=== PATIENT | female | born 1970 | race Caucasian/White ===

== ENCOUNTER 2016-10-26 19:36 | Emergency (ER) | payer MEDICARE ==
[2016-10-26] MEDS ORDERED: SODIUM CHLORIDE 0.9% 1000ML 750 ML IVS ONE (20:23)
[2016-10-26] MEDS ORDERED: methylPREDNISolone SODIUM SUC 1,000 MG in SODIUM CHLORIDE 0.9% 250ML 250 ML IVPB ONE (21:14)
[2016-10-26] MEDS ORDERED: methylPREDNISolone SODIUM SUC 125 MG/2 ML VIAL ONE ×2 (21:50→21:54)
[2016-10-26] MEDS ORDERED: SODIUM CHLORIDE 0.9% 250ML 250 ML ONE (21:57)
[2016-10-26] MEDS ORDERED: HYDROcodone 10MG/APAP 325MG 1 EA TAB PO ONE (22:15)
--- NOTE | 2016-10-26 22:25 | ED.PDOC ---
History of Present Illness - General Chief Complaint: Headache Stated Complaint: Headache x 5 days Time Seen by Provider: 10/26/16 19:38 Source: patient Exam Limitations: no limitations - History of Present Illness Initial Comments: the patient is a 45-year-old fe male presenting to the emergency room secondary to what she feels is a multiple sclerosis flare. The patient has had multiple sclerosis for 12 years and has approximately 6 small flares per year. Symptoms range from a tingling in her scalp and hands, to vision changes and weakness of her right lower extremity. She is presenting with 5 days of tingling in her scalp and hands with an associated headache. No other new symptoms. No fevers. No sore throat or runny nose. No trauma. No syncope or near syncope. No weakness and no vision changes. She reports that with these flares, she normally receives 1-2 Solu-Medrol infusions in order to correct them. She does take daily medications for her multiple sclerosis. Timing/Duration: 1 week Severity: mild Improving Factors: nothing Worsening Factors: nothing Associated Symptoms: headaches, malaise Allergies/Adverse Reactions: Allergies Chlorhexidine [From Hibiclens] Allergy (Verified 10/06/13 13:30) Aspirin Adverse Reaction (Verified 10/26/16 19:56) GI Upset Ibuprofen Adverse Reaction (Verified 10/26/16 19:56) Adverse Reaction Home Medications: Ambulatory Orders Gabapentin [Neurontin] 800 mg PO TID 10/04/13 Citalopram Hydrobromide 40 mg PO 10/26/16 Hydrocodone/Ibuprofen 7.5-200 mg 1 unit PO PRN 10/26/16 LORazepam [Ativan] 1 mg PO BID PRN 10/26/16 Review of Systems - Review of Systems Constitutional: States: malaise EENTM: States: no symptoms reported Respiratory: States: no symptoms reported Cardiology: States: no symptoms reported Gastrointestinal/Abdominal: States: no symptoms reported Genitourinary: States: no symptoms reported Musculoskeletal: States: no symptoms reported Skin: States: no symptoms reported Neurological: States: see HPI Endocrine: States: no symptoms reported All other Systems: No Change from Baseline Past Medical History (General) - Patient Medical History Hx Stroke: No Hx Cardiac Disorders: No Hx Congestive Heart Failure: No Hx Hypertension: No Hx Diabetes: No Hx Cancer: No Hx Hepatitis C: No Surgical History: Hysterectomy - Vaccination History Hx Tetanus, Diphtheria Vaccination: Yes Hx Influenza Vaccination: No - Triggers her MS Hx Pneumococcal Vaccination: No - Triggers her MS - Social History Hx Tobacco Use: No Hx Chewing Tobacco Use: No Hx Alcohol Use: No Hx Substance Use: No Hx Substance Use Treatment: No Hx Depression: No Feels Threatened In Home Enviroment: No Feels Threatened In a Relationship: No Hx Physical Abuse: No Hx Emotional Abuse: No Hx Suspected Abuse: No - Female History Patient is a Female of Child Bearing Age (10 -59 yrs old): No Patient : No Family Medical History - Family History Grandparents Family History: Unknown Physical Exam - Physical Exam General Appearance: Alert, Comfortable, No apparent distress Eye Exam: bilateral normal Ears, Nose, Throat: hearing grossly normal, normal ENT inspection, normal pharynx Neck: non-tender, full range of motion, supple, normal inspection Respiratory: chest non-tender, lungs clear, normal breath sounds, no respiratory distress, no accessory muscle use Cardiovascular/Chest: normal peripheral pulses, regular rate, rhythm, no edema Peripheral Pulses: radial,right: 2+, radial,left: 2+, dorsalis pedis,right: 2+, dorsalis pedis,left: 2+ Gastrointestinal/Abdominal: non tender, soft Rectal Exam: deferred Back Exam: normal inspection, no CVA tenderness, no vertebral tenderness Extremity: normal range of motion, non-tender, normal inspection, no pedal edema , normal capillary refill 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 laboratory work is reassuring. The patient has received a small IV fluid bolus. she has received 1 g of methylprednisolone succinate via her port. If the patient is significantly improved tomorrow, then she can contact her neurologist the next day to see if he wants her to have the second Solu-Medrol dose. If she is not improving, then she needs to return tomorrow for the second dose. ER warnings were given. - Results/Orders Results/Orders: Vital Signs - 24 hr 10/26/16 19:56 Temperature 98.3 F Pulse Rate [L 62 Arm] Respiratory 20 Rate Blood Pressure 143/78 [L Arm] O2 Sat by Pulse 93 L Oximetry Laboratory Tests 10/26/16 10/26/16 20:38 20:38 WBC 5.2 RBC 4.64 Hgb 14.4 Hct 42.0 MCV 90.4 MCH 31.0 MCHC 34.3 RDW 12.4 Plt Count 188 MPV 8.9 Absolute Neuts (auto) 2.20 Absolute Lymphs (auto) 2.40 Absolute Monos (auto) 0.50 Absolute Eos (auto) 0.00 Absolute Basos (auto) 0.00 Neutrophils % 42.6 Lymphocytes % 46.9 Monocytes % 9.5 H Eosinophils % 0.6 L Basophils % 0.4 Sodium 137 Potassium 4.1 Chloride 102 Carbon Dioxide 29 Anion Gap 10.1 L BUN 15 Creatinine 0.63 BUN/Creatinine Ratio 23.8 H Random Glucose 100 Serum Osmolality 274.7 L Calcium 9.2 Magnesium 2.0 Total Bilirubin 0.2 AST 30 ALT 22 Alkaline Phosphatase 104 Serum Total Protein 8.8 H Albumin 4.4 Globulin 4.4 H Albumin/Globulin Ratio 1.0 L Departure - Departure Clinical Impression: Multiple sclerosis exacerbation Disposition: Discharge to Home or Self Care Condition: Fair Departure Forms: ED Discharge - Pt. Copy, Patient Portal Self Enrollment Instructions: Multiple Sclerosis (Alternative Therapy), Multiple Sclerosis -- Adult Diet: regular diet Activity: increase activity as tolerated Referrals: Sher Bradley III, MD [Primary Care Provider] - 1-2 Weeks Home Medications: Ambulatory Orders Gabapentin [Neurontin] 800 mg PO TID 10/04/13 Citalopram Hydrobromide 40 mg PO 10/26/16 Hydrocodone/Ibuprofen 7.5-200 mg 1 unit PO PRN 10/26/16 LORazepam [Ativan] 1 mg PO BID PRN 10/26/16 Additional Instructions: the patient is a 45-year-old female presenting with symptoms consistent with her multiple sclerosis flares in an earlier stage. laboratory work is reassuring. The patient has received a small IV fluid bolus. she has received 1 g of methylprednisolone succinate via her port. If the patient is significantly improved tomorrow, then she can contact her neurologist the next day to see if he wants her to have the second Solu-Medrol dose. If she is not improving, then she needs to return tomorrow for the second dose. ER warnings were given.
[2016-10-26 23:21] VITALS: TEMP 99.5; O2SAT 100
[2016-10-26] MEDS ORDERED: HEPARIN SODIUM 100 U/ML 5 ML SYG IV ONE (23:59)
[2016-10-27 00:21] VITALS: BP 101/73
== END 2016-10-27 00:21 | disposition home or self-care (01) ==
LOC: ER 19:36
DX: G35 Multiple sclerosis (principal); Z88.6 Allergy status to analgesic agent; Z88.8 Allergy status to other drugs, medicaments and biological substances
CPT/HCPCS: 36415; 80053; 81001; 83735; 85025; 87086; J1642; J2930; J7030; J7050

== ENCOUNTER 2017-01-18 16:25 | Emergency (ER) | payer MEDICARE ==
[2017-01-18] MEDS ORDERED: ONDANSETRON INJ 4 MG/2 ML VIAL IV ONE (16:54)
[2017-01-18] MEDS ORDERED: SODIUM CHLORIDE 0.9% 1000ML 1,000 ML IVS ONE (16:54)
--- NOTE | 2017-01-18 16:58 | ED.PDOC ---
History of Present Illness - General Chief Complaint: GI Problem Stated Complaint: Nausea and vomiting Time Seen by Provider: 01/18/17 16:53 Source: patient Exam Limitations: no limitations - History of Present Illness Initial Comments: Patient presents with N/V since 18:00 last night. She says it is almost continuous. She had about a two hour "break" from it but then it started again. No abdominal pain. No diarrhea. Last meal was lunchtime yesterday. Last bowel movement was yesterday. Patient has MS and was treated two days ago with IV IgG. She has never had N/V after previous treatments. S/P appendectomy, cholecystectomy, and hysteretomy. Vomitus started out as mucous with some blood streaks but now is green. No coffee ground emesis. Patient uses alcohol socially. No similarly sick contacts. No other complaints. Timing/Duration: 24 hours Severity: moderate Improving Factors: nothing Worsening Factors: nothing Associated Symptoms: denies symptoms Allergies/Adverse Reactions: Allergies Chlorhexidine [From Hibiclens] Allergy (Verified 01/18/17 16:56) Aspirin Adverse Reaction (Verified 01/18/17 16:56) GI Upset Ibuprofen Adverse Reaction (Verified 01/18/17 16:56) Adverse Reaction Home Medications: Ambulatory Orders Gabapentin [Neurontin] 800 mg PO TID 10/04/13 Citalopram Hydrobromide 40 each PO DAILY 10/26/16 LORazepam [Ativan] 1 mg PO TID PRN 10/26/16 Estrogens, Conjugated [Premarin] 1.25 mg PO DAILY 01/18/17 HYDROcodone/IBUPROFEN 7.5/200 [Vicoprofen] 1 tab PO TID PRN 01/18/17 Interferon Beta-1A [Rebif] 44 mcg SC MOWEFR 01/18/17 Review of Systems - Review of Systems Constitutional: States: no symptoms reported EENTM: States: no symptoms reported Respiratory: States: no symptoms reported Cardiology: States: no symptoms reported Gastrointestinal/Abdominal: States: see HPI Genitourinary: States: no symptoms reported Musculoskeletal: States: no symptoms reported Skin: States: no symptoms reported Neurological: States: no symptoms reported, emotional problems Hematologic/Lymphatic: States: no symptoms reported Past Medical History (General) - Patient Medical History Hx Stroke: No Hx Cardiac Disorders: No Hx Congestive Heart Failure: No Hx Hypertension: No Hx Diabetes: No Hx Cancer: No Hx Hepatitis C: No - Vaccination History Hx Tetanus, Diphtheria Vaccination: Yes Hx Influenza Vaccination: No - Triggers her MS Hx Pneumococcal Vaccination: No - Triggers her MS - Social History Hx Tobacco Use: No Hx Chewing Tobacco Use: No Hx Alcohol Use: No Hx Substance Use: No Hx Substance Use Treatment: No Hx Depression: No Hx Physical Abuse: No Hx Emotional Abuse: No Hx Suspected Abuse: No - Female History Patient : No Family Medical History - Family History Grandparents Family History: Unknown Physical Exam - Physical Exam General Appearance: Alert Ears, Nose, Throat: normal ENT inspection Neck: non-tender, full range of motion, supple Respiratory: lungs clear Cardiovascular/Chest: normal peripheral pulses, regular rate, rhythm Gastrointestinal/Abdominal: normal bowel sounds, non tender, soft Back Exam: no CVA tenderness Progress - Progress Progress: 01/18/17 18:55 wbc wnl. Patient's nausea resolved with zofran 4 mg IV x one and one liter NS bolus. Patient did not vomit in the E.D. The risks and benefits of a CT scan were discussed with the patient and it was mutually decided not to perform one. Laboratory Tests 01/18/17 01/18/17 01/18/17 17:32 17:32 17:32 WBC 4.4 L RBC 4.57 Hgb 14.5 Hct 41.5 MCV 90.7 MCH 31.7 H MCHC 34.9 RDW 12.1 Plt Count 230 MPV 9.0 Absolute Neuts (auto) 2.40 Absolute Lymphs (auto) 1.50 Absolute Monos (auto) 0.40 Absolute Eos (auto) 0.00 Absolute Basos (auto) 0.00 Neutrophils % 55.6 Lymphocytes % 33.8 Monocytes % 10.1 H Eosinophils % 0.2 L Basophils % 0.3 Sodium 136 Potassium 3.8 Chloride 102 Carbon Dioxide 22 Anion Gap 15.8 BUN 12 Creatinine 0.49 L BUN/Creatinine Ratio 24.5 H Random Glucose 100 Serum Osmolality 271.8 L Calcium 9.2 Total Bilirubin 0.8 AST 30 ALT 21 Alkaline Phosphatase 100 Serum Total Protein 9.9 H Albumin 4.0 Globulin 5.9 H Albumin/Globulin Ratio 0.7 L Lipase 27 Departure - Departure Clinical Impression: Vomiting Disposition: Discharge to Home or Self Care Condition: Good Diet: other - Start with clear fluids for 24 hours then advance to a soft, bland diet. After that, advance your diet as tolerated. Take medication as directed. Activity: increase activity as tolerated Referrals: Sher Bradley III, MD [Primary Care Provider] - 1-2 Weeks Home Medications: Ambulatory Orders Gabapentin [Neurontin] 800 mg PO TID 10/04/13 Citalopram Hydrobromide 40 each PO DAILY 10/26/16 LORazepam [Ativan] 1 mg PO TID PRN 10/26/16 Estrogens, Conjugated [Premarin] 1.25 mg PO DAILY 01/18/17 HYDROcodone/IBUPROFEN 7.5/200 [Vicoprofen] 1 tab PO TID PRN 01/18/17 Interferon Beta-1A [Rebif] 44 mcg SC MOWEFR 01/18/17
[2017-01-18 16:59] VITALS: TEMP 98.6
[2017-01-18] MEDS ORDERED: ONDANSETRON ODT (ER DISP) 8 MG TAB PO ONE (18:58)
[2017-01-18] MEDS ORDERED: HEPARIN SODIUM 100 U/ML 5 ML SYG IV ONE (19:00)
[2017-01-18 19:13] VITALS: BP 138/92; O2SAT 98
== END 2017-01-18 19:14 | disposition home or self-care (01) ==
LOC: ER 16:25
DX: R11.2 Nausea with vomiting, unspecified (principal); G35 Multiple sclerosis; Z88.6 Allergy status to analgesic agent; Z88.8 Allergy status to other drugs, medicaments and biological substances
CPT/HCPCS: 36415; 80053; 83690; 85025; J1642; J2405; J7030

== ENCOUNTER → 2017-04-08 | Outpatient (CLI) | payer MEDICARE | END | disposition home or self-care (01) | LOC: LAB.O 09:06 | PROVIDERS: ATTEND Obstetrics & Gynecology | DX: Z00.00 Encounter for general adult medical examination without abnormal findings (principal); G35 Multiple sclerosis; N95.1 Menopausal and female climacteric states; E04.2 Nontoxic multinodular goiter; F41.9 Anxiety disorder, unspecified ==

== ENCOUNTER 2017-10-25 16:36 | Emergency (ER) | payer MEDICARE, MEDICAID ==
[2017-10-25] MEDS ORDERED: SODIUM CHLORIDE 0.9% 1000ML 1,000 ML IVS ONE (17:09)
[2017-10-25] MEDS ORDERED: TAMSULOSIN 0.4 MG CAP PO ONE (17:09)
[2017-10-25] MEDS ORDERED: MEPERIDINE HCL 50 MG/ML VIAL IV ONE (17:10)
[2017-10-25] MEDS ORDERED: ONDANSETRON ODT 8 MG TAB SL ONE (17:10)
--- NOTE | 2017-10-25 17:13 | ED.PDOC ---
History of Present Illness - General Chief Complaint: Back Pain or Injury Time Seen by Provider: 10/25/17 17:08 Source: patient Exam Limitations: no limitations - History of Present Illness Initial Comments: patient comes in today with 3 day history of right sided back pain that radiates to the right flank and lower abdomen. Patient has been unable to urinate well over the past couple of days with pain but no burning and no fever but some chills. Patient states she's had no injury or trauma she's had no change in activity. Patient states that today for most the morning she was unable to pass urine until directly coming to the emergency room. She feels like maybe she has a kidney stone but she has never had one before. She does have problems with her urination because of her MS. After her treatment which the last one was 2 weeks ago she normally has problems with urinary incontinence. She's never had these problems though. Patient has MS and is undergoing treatment. She has no other medical problems and is otherwise healthy. Allergies/Adverse Reactions: Allergies Chlorhexidine [From Hibiclens] Allergy (Verified 01/18/17 16:56) Aspirin Adverse Reaction (Verified 01/18/17 16:56) GI Upset Ibuprofen Adverse Reaction (Verified 01/18/17 16:56) Adverse Reaction Home Medications: Ambulatory Orders Gabapentin [Neurontin] 800 mg PO TID 10/04/13 Citalopram Hydrobromide 40 each PO DAILY 10/26/16 LORazepam [Ativan] 1 mg PO TID PRN 10/26/16 Estrogens, Conjugated [Premarin] 1.25 mg PO DAILY 01/18/17 HYDROcodone/IBUPROFEN 7.5/200 [Vicoprofen] 1 tab PO TID PRN 01/18/17 Interferon Beta-1A [Rebif] 44 mcg SC MOWEFR 01/18/17 Review of Systems - Review of Systems Constitutional: States: chills. Denies: diaphoresis, fever EENTM: States: no symptoms reported Respiratory: States: no symptoms reported Cardiology: States: no symptoms reported Gastrointestinal/Abdominal: States: abdominal pain, nausea, vomiting. Denies: constipation, diarrhea Genitourinary: States: see HPI, pain. Denies: hematuria Musculoskeletal: States: back pain Skin: States: no symptoms reported Neurological: States: see HPI Past Medical History (General) - Patient Medical History Hx Stroke: No Hx Cardiac Disorders: No Hx Congestive Heart Failure: No Hx Hypertension: No Hx Diabetes: No Hx Cancer: No Hx Hepatitis C: No Hx Other - free text: Multiple Sclerosis - Vaccination History Hx Tetanus, Diphtheria Vaccination: Yes Hx Influenza Vaccination: No - Triggers her MS Hx Pneumococcal Vaccination: No - Triggers her MS - Social History Hx Tobacco Use: No Hx Chewing Tobacco Use: No Hx Alcohol Use: No Hx Substance Use: No Hx Substance Use Treatment: No Hx Depression: No Hx Physical Abuse: No Hx Emotional Abuse: No Hx Suspected Abuse: No - Female History Patient : No Family Medical History - Family History Grandparents Family History: Unknown Living Status: Physical Exam - Physical Exam General Appearance: Obvious distress Eye Exam: bilateral normal Ears, Nose, Throat: hearing grossly normal, normal ENT inspection, normal pharynx Neck: non-tender, full range of motion, supple, normal inspection Respiratory: chest non-tender, lungs clear, normal breath sounds, no respiratory distress Cardiovascular/Chest: normal peripheral pulses, regular rate, rhythm, no edema, no gallop, no JVD, no murmur Peripheral Pulses: radial,right: 2+, radial,left: 2+ Gastrointestinal/Abdominal: normal bowel sounds, soft - TTP to RLQ and R flank with no distention, rebound, or guarding Back Exam: CVA tenderness (R), other - no bruising no gross deformity Progress - Progress Progress: 10/25/17 20:20 10/25/17 17:09 IV Care:Saline Lock per Protoc QSHIFT Laboratory Results WBC 6.2 K/mm3 (4.8-10.8) 10/25/17 17:38 RBC 4.32 M/mm3 (4.20-5.40) 10/25/17 17:38 Hgb 13.5 gm/dL (12.0-16.0) 10/25/17 17:38 Hct 38.9 % (36.0-47.0) 10/25/17 17:38 MCV 90.1 fl (81.0-99.0) 10/25/17 17:38 MCH 31.2 pg (27.0-31.0) H 10/25/17 17:38 MCHC 34.6 g/dL (33.0-37.0) 10/25/17 17:38 RDW 12.3 % (11.5-14.5) 10/25/17 17:38 Plt Count 218 K/mm3 (130-400) 10/25/17 17:38 MPV 9.4 fl (7.40-10.4) 10/25/17 17:38 Absolute Neuts (auto) 3.20 K/uL (1.8-6.8) 10/25/17 17:38 Absolute Lymphs (auto) 2.40 K/uL (1.0-3.4) 10/25/17 17:38 Absolute Monos (auto) 0.50 K/uL (0.2-0.8) 10/25/17 17:38 Absolute Eos (auto) 0.00 K/uL (0.0-0.4) 10/25/17 17:38 Absolute Basos (auto) 0.00 K/uL (0.0-0.1) 10/25/17 17:38 Neutrophils % 51.6 % (42.0-78.0) 10/25/17 17:38 Lymphocytes % 39.4 % (20.0-50.0) 10/25/17 17:38 Monocytes % 8.0 % (2.0-9.0) 10/25/17 17:38 Eosinophils % 0.6 % (1.0-5.0) L 10/25/17 17:38 Basophils % 0.4 % (0.0-2.0) 10/25/17 17:38 Sodium 135 mmol/L (135-145) 10/25/17 17:38 Potassium 3.6 mmol/L (3.6-5.0) 10/25/17 17:38 Chloride 103 mmol/L (101-111) 10/25/17 17:38 Carbon Dioxide 25 mmol/L (21-31) 10/25/17 17:38 Anion Gap 10.6 (12-18) L 10/25/17 17:38 BUN 9 mg/dL (7-18) 10/25/17 17:38 Creatinine 0.62 mg/dL (0.6-1.3) 10/25/17 17:38 BUN/Creatinine Ratio 14.5 (10-20) 10/25/17 17:38 Random Glucose 90 mg/dL (70-105) 10/25/17 17:38 Serum Osmolality 268.3 mOsm/L (275-295) L 10/25/17 17:38 Calcium 8.8 mg/dL (8.4-10.2) 10/25/17 17:38 Total Bilirubin 0.3 mg/dL (0.2-1.0) 10/25/17 17:38 AST 25 IU/L (10-42) 10/25/17 17:38 ALT 18 IU/L (10-60) 10/25/17 17:38 Alkaline Phosphatase 125 IU/L (42-121) H 10/25/17 17:38 Serum Total Protein 8.4 gm/dL (6.4-8.2) H 10/25/17 17:38 Albumin 3.7 g/dl (3.2-5.5) 10/25/17 17:38 Globulin 4.7 gm/dL (2.3-3.5) H 10/25/17 17:38 Albumin/Globulin Ratio 0.8 (1.1-1.9) L 10/25/17 17:38 Urine Color Yellow (Yellow) 10/25/17 17:07 Urine Appearance Clear (Clear) 10/25/17 17:07 Urine pH 7.0 (4.5-7.8) 10/25/17 17:07 Ur Specific [place] 1.010 (1.005-1.030) 10/25/17 17:07 Urine Protein Negative mg/dL 10/25/17 17:07 Urine Glucose (UA) Negative mg/dL (Negative) 10/25/17 17:07 Urine Ketones Negative mg/dL (NEGATIVE) 10/25/17 17:07 Urine Blood Trace-lysed (Negative) H 10/25/17 17:07 Urine Nitrite Negative 10/25/17 17:07 Urine Bilirubin Negative (NEGATIVE) 10/25/17 17:07 Urine Urobilinogen 0.2 mg/dL (0.2-1.0) 10/25/17 17:07 Ur Leukocyte Esterase Negative (Negative) 10/25/17 17:07 Urine RBC 0-1 /hpf 10/25/17 17:07 Urine WBC 0 /hpf 10/25/17 17:07 Ur Epithelial Cells 10-20 /hpf 10/25/17 17:07 Urine Bacteria Rare 10/25/17 17:07 Patient Name: JERARDO BAEZN Gender: Female Date of : 1970 Referring Physician: YANA REGALADO Organization: [facility] Accession Number: [id number] Requested Date: October 25, 2017 17:42 Report Status: Final Requested Procedure: 1 Procedure Description: Abdoment/Pelvis w/o Contrast Modality: CT Findings Reporting MD: Jorge Gan Fellow MD: Not available Dictation Time: Test 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 TECHNIQUE: Contiguous axial images of the abdomen and pelvis were obtained followed by reconstruction images. This exam was performed according to our departmental dose-optimization program, which includes automated exposure control, adjustment of the mA and/or kV according to patient size and/or use of iterative reconstruction technique. FINDINGS: Gallbladder is surgically absent. No ureteral stone or renal stone on either side. There is colonic diverticulosis. Probable varices are seen in the anterior subcutaneous fat. Detail is limited without contrast. There are mildly enlarged inguinal lymph nodes bilaterally. No hydronephrosis. Adrenal glands are within normal limits. Aorta is of normal caliber and tapering. There is no free fluid in the abdomen or pelvis. There is no bowel obstruction. There is no stranding of the mesenteric fat to suggest an inflammatory response. IMPRESSION: No acute intra-abdominal abnormality. Electronically signed by: Jorge Gan 10/25/2017 6:32 PM CDT patient had some trace blood in her urine and so we did proceed with CT of her abdomen and pelvis. No stone was seen the patient did have to go the bathroom and it was not cough or straining. The patient at that time had all pain resolved and at this time she is asymptomatic. Patient understands if he comes back she should return to the emergency room bit this time as she has no symptoms and exams are reassuring we'll discharge her home. Patient to follow- up with her PCP in 4-5 days to reevaluate. Departure - Departure Clinical Impression: Ureteritis Disposition: Discharge to Home or Self Care Condition: Good Departure Forms: ED Discharge - Pt. Copy, Patient Portal Self Enrollment Instructions: DI for Low Back Pain Diet: regular diet Activity: walking as tolerated Referrals: Sher Bradley III, MD [Primary Care Provider] - 1-2 Weeks Home Medications: Ambulatory Orders Gabapentin [Neurontin] 800 mg PO TID 10/04/13 Citalopram Hydrobromide 40 each PO DAILY 10/26/16 LORazepam [Ativan] 1 mg PO TID PRN 10/26/16 Estrogens, Conjugated [Premarin] 1.25 mg PO DAILY 01/18/17 HYDROcodone/IBUPROFEN 7.5/200 [Vicoprofen] 1 tab PO TID PRN 01/18/17 Interferon Beta-1A [Rebif] 44 mcg SC MOWEFR 01/18/17 Additional Instructions: patient most likely had now passed kidney stone but was not able to be caught here in the emergency room. Patient is to increase her fluids and follow up with her PCP next week. She should return to the ER for return of pain, fever greater than or equal to her 0.5, or intractable emesis.
[2017-10-25] MEDS ORDERED: MORPHINE SULFATE INJ 10 MG/ML VIAL IV ONE (17:42)
--- NOTE | 2017-10-25 18:33 | CT ---
CT abdomen EXAM DESCRIPTION: Abdoment/Pelvis w/o Contrast CLINICAL HISTORY: renal protocol for possible stone COMPARISON: None Available. TECHNIQUE: Contiguous axial images of the abdomen and pelvis were obtained followed by reconstruction images. This exam was performed according to our departmental dose-optimization program, which includes automated exposure control, adjustment of the mA and/or kV according to patient size and/or use of iterative reconstruction technique. FINDINGS: Gallbladder is surgically absent. No ureteral stone or renal stone on either side. There is colonic diverticulosis. Probable varices are seen in the anterior subcutaneous fat. Detail is limited without contrast. There are mildly enlarged inguinal lymph nodes bilaterally. No hydronephrosis. Adrenal glands are within normal limits. Aorta is of normal caliber and tapering. There is no free fluid in the abdomen or pelvis. There is no bowel obstruction. There is no stranding of the mesenteric fat to suggest an inflammatory response. IMPRESSION: No acute intra-abdominal abnormality. Electronically signed by: Jorge Gan 10/25/2017 6:32 PM CDT
[2017-10-25 20:30] VITALS: TEMP 98.9; O2SAT 98
[2017-10-25 20:31] VITALS: BP 133/90
[2017-10-25] MEDS ORDERED: HEPARIN SODIUM 100 U/ML 5 ML SYG IV ONE ×2 (20:33)
== END 2017-10-25 20:44 | disposition home or self-care (01) ==
LOC: ER 16:36
DX: N28.89 Other specified disorders of kidney and ureter (principal); G35 Multiple sclerosis; Z79.890 Hormone replacement therapy
CPT/HCPCS: 36415; 74176; 80053; 81001; 85025; J1642; J2270; J7030

== ENCOUNTER 2018-05-06 23:37 | Emergency (ER) | payer MEDICAID, MEDICARE ==
[2018-05-07 00:02] VITALS: TEMP 97.2
[2018-05-07] MEDS ORDERED: PROMETHAZINE HCL 25 MG TAB PO ONE (00:14)
[2018-05-07] MEDS ORDERED: diazePAM 2 MG TAB PO ONE (00:14)
[2018-05-07 00:48] VITALS: O2SAT 99
--- NOTE | 2018-05-07 01:37 | ED.PDOC ---
History of Present Illness - General Chief Complaint: Blood Pressure Problem Stated Complaint: elevated BP Time Seen by Provider: 05/06/18 23:39 Source: patient Exam Limitations: no limitations - History of Present Illness Initial Comments: the patient's a 47-year-old female presenting to the emergency room secondary to a headache that has been fairly persistent over the last 3 days and has gotten a little bit worse today. She has had 3 episodes of nausea and vomiting due to the headache today. No blood noted by a period possibly not coincidentally, the patient has not had a dose of her Xanax in the last 4 days. Prior to that she was taking it regularly. No fevers. No altered mental status. She does have multiple sclerosis and has been something of a flare cycle. She has received a dose of her biological medication within the last couple of days and she has also undergone a steroid bolusing last week. She feels that she is doing pretty good from the MS standpoint. Headache seems to be fairly circumferential. No nuchal rigidity. No meningeal signs. No focal neurological changes. No point tenderness over the sinuses. No vision changes. Timing/Duration: other - 3 days Severity: moderate Improving Factors: nothing Worsening Factors: nothing Associated Symptoms: nausea/vomiting Allergies/Adverse Reactions: Allergies Chlorhexidine [From Hibiclens] Allergy (Verified 01/18/17 16:56) Aspirin Adverse Reaction (Verified 01/18/17 16:56) GI Upset Ibuprofen Adverse Reaction (Verified 01/18/17 16:56) Adverse Reaction Home Medications: Ambulatory Orders Gabapentin [Neurontin] 800 mg PO TID 10/04/13 Citalopram Hydrobromide 40 each PO DAILY 10/26/16 LORazepam [Ativan] 1 mg PO TID PRN 10/26/16 Estrogens, Conjugated [Premarin] 1.25 mg PO DAILY 01/18/17 HYDROcodone/IBUPROFEN 7.5/200 [Vicoprofen] 1 tab PO TID PRN 01/18/17 Interferon Beta-1A [Rebif] 44 mcg SC MOWEFR 01/18/17 Review of Systems - Review of Systems Constitutional: States: no symptoms reported EENTM: States: no symptoms reported Respiratory: States: no symptoms reported Cardiology: States: no symptoms reported Gastrointestinal/Abdominal: States: see HPI Genitourinary: States: no symptoms reported Musculoskeletal: States: no symptoms reported Skin: States: no symptoms reported Neurological: States: see HPI, anxiety Endocrine: States: no symptoms reported All other Systems: No Change from Baseline Past Medical History (General) - Patient Medical History Hx Stroke: No Hx Cardiac Disorders: No Hx Congestive Heart Failure: No Hx Hypertension: No Hx Diabetes: No Hx Cancer: No Hx Hepatitis C: No Surgical History: appendectomy, cholecystectomy, tonsillectomy, Hysterectomy - Vaccination History Hx Tetanus, Diphtheria Vaccination: Yes Hx Influenza Vaccination: No Hx Pneumococcal Vaccination: No Immunizations Up to Date: No - Social History Hx Tobacco Use: No Hx Chewing Tobacco Use: No Hx Alcohol Use: No Hx Substance Use: No Hx Substance Use Treatment: No Hx Depression: No Hx Physical Abuse: No Hx Emotional Abuse: No Hx Suspected Abuse: No - Female History Patient : No Family Medical History - Family History Grandparents Family History: Unknown Living Status: Physical Exam - Physical Exam General Appearance: Alert, Comfortable, No apparent distress Eye Exam: bilateral normal Ears, Nose, Throat: hearing grossly normal, normal ENT inspection, normal pharynx Neck: full range of motion, supple Respiratory: lungs clear, normal breath sounds, no respiratory distress, no accessory muscle use Cardiovascular/Chest: normal peripheral pulses, regular rate, rhythm, no edema Peripheral Pulses: radial,right: 2+, radial,left: 2+, dorsalis pedis,right: 2+, dorsalis pedis,left: 2+ Gastrointestinal/Abdominal: non tender, soft Rectal Exam: deferred Back Exam: normal inspection, no CVA tenderness Extremity: normal range of motion, non-tender, normal inspection, no pedal edema , normal capillary refill 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 Source of the headache is not entirely certain, but is not associated with any focal neurological changes or nuchal rigidity. The patient has responded fairly well to a dose of the nausea medication and a benzodiazepine. It is possible the patient may be withdrawing from the benzodiazepines that she is been on recently. The patient has deferred further laboratory work at this time. No new neurological changes otherwise. The patient does need to keep follow-up with her neurologist for her multiple sclerosis. Blood pressures can be followed at home when the patient is relaxed, twice daily and these can be reported to her primary care doctor. Blood pressures may also be remaining a little bit elevated due to the recent steroid course. eR warnings were given. Departure - Departure Clinical Impression: Headache Qualifiers: Headache type: unspecified Headache chronicity pattern: acute headache Intractability: not intractable Qualified Code(s): R51 - Headache Disposition: Discharge to Home or Self Care Condition: Fair Departure Forms: ED Discharge - Pt. Copy, Patient Portal Self Enrollment Instructions: Headache, Adult Diet: regular diet Activity: increase activity as tolerated Referrals: Sher Bradley III, MD [Primary Care Provider] - 1-2 Weeks Home Medications: Ambulatory Orders Gabapentin [Neurontin] 800 mg PO TID 10/04/13 Citalopram Hydrobromide 40 each PO DAILY 10/26/16 LORazepam [Ativan] 1 mg PO TID PRN 10/26/16 Estrogens, Conjugated [Premarin] 1.25 mg PO DAILY 01/18/17 HYDROcodone/IBUPROFEN 7.5/200 [Vicoprofen] 1 tab PO TID PRN 01/18/17 Interferon Beta-1A [Rebif] 44 mcg SC MOWEFR 01/18/17 Additional Instructions: the patient is a 47-year-old female presenting to the emergency room with a headache of several days duration with a mild elevation of her blood pressures and some mild associated nausea and vomiting. Source of the headache is not entirely certain, but is not associated with any focal neurological changes or nuchal rigidity. The patient has responded fairly well to a dose of the nausea medication and a benzodiazepine. It is possible the patient may be withdrawing from the benzodiazepines that she is been on recently. The patient has deferred further laboratory work at this time. No new neurological changes otherwise. The patient does need to keep follow-up with her neurologist for her multiple sclerosis. Blood pressures can be followed at home when the patient is relaxed, twice daily and these can be reported to her primary care doctor. Blood pressures may also be remaining a little bit elevated due to the recent steroid course. eR warnings were given.
[2018-05-07 01:53] VITALS: BP 137/88
== END 2018-05-07 01:53 | disposition home or self-care (01) ==
LOC: ER 23:37
DX: R51 Headache (principal); R11.2 Nausea with vomiting, unspecified; R03.0 Elevated blood-pressure reading, without diagnosis of hypertension; G35 Multiple sclerosis; Z79.899 Other long term (current) drug therapy

== ENCOUNTER 2018-06-21 17:54 | Emergency (ER) | payer MEDICARE ==
[2018-06-21 18:34] VITALS: TEMP 99.5
--- NOTE | 2018-06-21 18:46 | ED.PDOC ---
History of Present Illness - General Chief Complaint: Lower Extremity Injury Stated Complaint: fall with bilateral ankle injury Time Seen by Provider: 06/21/18 18:21 Source: patient Exam Limitations: no limitations - History of Present Illness Initial Comments: Patient is a 47 yo F with M.S. who has been having a recent exacerbation. Today it caused her to fall and she hit the lateral ankle on each foot when she fell on the ground. She says that she did not twist the ankles. Pain is constant, non-radiating, worse with movement, better with rest, no previous episodes. No other complaints. Timing/Duration: 1-3 hours Severity: mild Improving Factors: rest Worsening Factors: medication Associated Symptoms: denies symptoms Allergies/Adverse Reactions: Allergies Chlorhexidine [From Hibiclens] Allergy (Verified 01/18/17 16:56) Aspirin Adverse Reaction (Verified 01/18/17 16:56) GI Upset Ibuprofen Adverse Reaction (Verified 01/18/17 16:56) Adverse Reaction Home Medications: Ambulatory Orders Gabapentin [Neurontin] 800 mg PO TID 10/04/13 Estrogens, Conjugated [Premarin] 1.25 mg PO BID 01/18/17 Interferon Beta-1A [Rebif] 44 mcg SC MOWEFR 01/18/17 Alprazolam 0.5 mg PO TID PRN 06/21/18 Duloxetine HCl [Duloxetine Hydrochloride] 60 mg PO BEDTIME 06/21/18 Losartan Potassium 50 mg PO DAILY 06/21/18 Review of Systems - Review of Systems Constitutional: States: no symptoms reported EENTM: States: no symptoms reported Respiratory: States: no symptoms reported Cardiology: States: no symptoms reported Gastrointestinal/Abdominal: States: no symptoms reported Genitourinary: States: no symptoms reported Musculoskeletal: States: see HPI Skin: States: no symptoms reported Neurological: States: see HPI Endocrine: States: no symptoms reported Hematologic/Lymphatic: States: no symptoms reported Past Medical History (General) - Patient Medical History Hx Stroke: No Hx Cardiac Disorders: No Hx Congestive Heart Failure: No Hx Hypertension: No Hx Diabetes: No Hx Cancer: No Hx Hepatitis C: No Surgical History: appendectomy, cholecystectomy, tonsillectomy, Hysterectomy - Vaccination History Hx Tetanus, Diphtheria Vaccination: Yes Hx Influenza Vaccination: No Hx Pneumococcal Vaccination: No - Social History Hx Tobacco Use: No Hx Chewing Tobacco Use: No Hx Alcohol Use: No Hx Substance Use: No Hx Substance Use Treatment: No Hx Depression: No Hx Physical Abuse: No Hx Emotional Abuse: No Hx Suspected Abuse: No - Female History Patient : No Family Medical History - Family History Grandparents Family History: Unknown Living Status: Physical Exam - Physical Exam General Appearance: Alert Respiratory: normal breath sounds, no respiratory distress Cardiovascular/Chest: normal peripheral pulses, regular rate, rhythm Gastrointestinal/Abdominal: normal bowel sounds, non tender, soft Extremity: other - TTP over lateral malleolus of the right ankle. There is a golf-ball size contusion there. The patient has 5/5 strength to dorsiflexion/plantarflexion/inversion/eversion of both feet but the right foot is painful with AROM and PROM. Full sensation on both feet. Capillar refill less than two seconds at bilateral nailbeds of the feet. Neurologic: no motor/sensory deficits, alert, normal mood/affect, oriented x 3 Skin Exam: normal color Progress - Progress Progress: 06/21/18 20:09 Radiographs showed a non-displaced calcaneal fracture of the right foot. Left foot was normal. Right foot was splinted with a 90 degree splint, crutches provided, and follow up instructions given. E.R. warnings given. Care instructions given. Questions were elicited and answered. The patient voiced understanding and agreement with the plan. Departure - Departure Clinical Impression: Calcaneal fracture Disposition: Discharge to Home or Self Care Condition: Good Departure Forms: ED Discharge - Pt. Copy, Patient Portal Self Enrollment Instructions: DI for Leg Pain Diet: resume usual diet Activity: other - No weight on the right foot Referrals: Sher Bradley III, MD [Primary Care Provider] - 1-2 Weeks Home Medications: Ambulatory Orders Gabapentin [Neurontin] 800 mg PO TID 10/04/13 Estrogens, Conjugated [Premarin] 1.25 mg PO BID 01/18/17 Interferon Beta-1A [Rebif] 44 mcg SC MOWEFR 01/18/17 Alprazolam 0.5 mg PO TID PRN 06/21/18 Duloxetine HCl [Duloxetine Hydrochloride] 60 mg PO BEDTIME 06/21/18 Losartan Potassium 50 mg PO DAILY 06/21/18 Additional Instructions: You may use your home pain medications as prescribed and ice to the feet for pain. See Dr. Sanchez or another orthopedic surgeon on or Thursday of this week. Call the orthopedic surgeon in the morning to get an appointment. Use the crutches. No not put weight on or use the right foot.
[2018-06-21] MEDS ORDERED: KETOROLAC TROMETHAMINE INJ 30 MG/ML VIAL IM ONE (18:48)
--- NOTE | 2018-06-21 19:14 | RAD ---
EXAM DESCRIPTION: Ankle,Left 3 Views CLINICAL HISTORY: 47 years Female, pain after fall COMPARISON: None. FINDINGS: Three views of the left ankle joint. Ankle alignment is maintained. No fracture. Talar dome is intact. Calcaneus bone is without acute finding. Soft tissues are within normal limits. IMPRESSION: No acute osseous finding of the left ankle. Electronically signed by: Mae Deluca MD 06/21/2018 7:13 PM [facility]
--- NOTE | 2018-06-21 19:15 | RAD ---
EXAM DESCRIPTION: Ankle,Right 3 Views CLINICAL HISTORY: 47 years Female, pain after fall COMPARISON: None. FINDINGS: Right ankle 3 views Nondisplaced fracture through the anterior process of the calcaneus. No other fracture dislocation seen. Ankle joint is preserved. Electronically signed by: Bruce Maldonado MD 06/21/2018 7:14 PM [facility]
[2018-06-21 20:09] VITALS: BP 146/93; O2SAT 98
== END 2018-06-21 20:24 | disposition home or self-care (01) ==
LOC: ER 17:54
DX: S92.024A Nondisplaced fracture of anterior process of right calcaneus, initial encounter for closed fracture (principal); M25.572 Pain in left ankle and joints of left foot; G35 Multiple sclerosis; Z79.899 Other long term (current) drug therapy; Z88.6 Allergy status to analgesic agent; Z88.8 Allergy status to other drugs, medicaments and biological substances; W18.39XA Other fall on same level, initial encounter; Y92.9 Unspecified place or not applicable
CPT/HCPCS: 73610; J1885

== ENCOUNTER → 2018-07-27 | Outpatient (CLI) | payer MEDICARE ==
[~2018-07-27] MED LIST: HEPARIN SODIUM 100 U/ML 5 ML SYG IV ONE
--- NOTE | 2018-07-27 15:35 | RAD ---
EXAM DESCRIPTION: Fluoroscopic catheter check with IV contrast: CR/DR/XR. CLINICAL HISTORY: 47 years Female, Z45.2. Patient receiving chemotherapy. Nurse unable to aspirate blood at the injection port, but no obstruction when administering chemotherapy. COMPARISON: None. TECHNIQUE: Fluoroscopic basketball scout image AP of VAD an injection port. The injection port was accessed by a nurse prior to procedure. The radiologist was unable to aspirate blood into the injection syringe. Under fluoroscopic visualization, nonionic IV contrast injected through the access line into the injection port for VAD sent a images were obtained. The injection to and needle were removed by the nurse after heparin flush. The nurse noted minimal blunt aspiration. 2 cine loop's with total 31 images. Total dose 10.7 mGy. DAP 2.31 vanegas- centimeters squared. Fluoroscopic time 0.4 minutes FINDINGS: On the fluoroscopic basketball scout image, a VAD with right subclavian access is visualized. The tip of the VAD appears to have migrated into the inferior right IJ. The tip is directed toward the heart however. Contrast was injected under fluoroscopic visualization with some resistance. Contrast can be seen exiting the distal opening. Some of the contrast flows slowly away from the opening. Irregularity of the contour of the distal third of the VAD suggests a fibrin sheath along the catheter. IMPRESSION: 1. Distal right central VAD has migrated into the inferior/proximal right IJ vein. 2. Partially obstructed flow from the distal opening of the VAD within the proximal right IJ vein and a fibrin sheath is coating the distal third of the catheter. Electronically signed by: Jorge Gandhi MD 07/27/2018 3:32 PM [facility]
== END ==
LOC: RAD 08:24
PROVIDERS: ATTEND Surgery
DX: Z45.2 Encounter for adjustment and management of vascular access device (principal)
CPT/HCPCS: 76000; J1642

== ENCOUNTER → 2018-07-29 | Outpatient (CLI) | payer MEDICARE ==
--- NOTE | 2018-07-29 13:03 | RAD ---
EXAM DESCRIPTION: Calcaneous,Right CLINICAL HISTORY: 47 years Female, UNSP FRACTURE OF RIGHT CALCANEUS, SUBS FOR FX W RO COMPARISON: None. TECHNIQUE: 2 views of the right calcaneus. IMPRESSION: No acute displaced fracture. No dislocation. No trabecular disruption to indicate occult fracture of the study. Bohler's angle within normal limits measured at 35 degrees. Visualized talar dome is intact. No appreciable tibial talar joint effusion. No radiographically apparent soft tissue abnormality. Electronically signed by: Paco Acuña MD 07/29/2018 1:00 PM [facility]
== END ==
LOC: RAD 08:21
PROVIDERS: ATTEND Orthopaedic Surgery
DX: S92.001D Unspecified fracture of right calcaneus, subsequent encounter for fracture with routine healing (principal)

== ENCOUNTER 2018-08-05 07:00 | Day surgery (SDC) | payer MEDICARE ==
[~2018-08-05 07:00] MED LIST changes: +DEXAMETHASONE INJ 10 MG/ML VIAL ONE; -HEPARIN SODIUM 100 U/ML 5 ML SYG IV ONE; +LIDOCAINE 1% 10 ML VIAL INJ ONE; +METOCLOPRAMIDE HCL INJ 10 MG/2 ML VIAL ONE; +PROPOFOL 200 MG/20 ML VIAL IV ONE
[2018-08-05] MEDS ORDERED: ceFAZolin SODIUM 1 GM VIAL ONE (08:53)
[2018-08-05] MEDS ORDERED: SODIUM CHL 0.9% 100ML MINI-BAG 100 ML IVPB ONE (08:53)
[2018-08-05] MEDS ORDERED: LACTATED RINGERS 1,000 ML ONE (08:53)
[2018-08-05] MEDS ORDERED: SODIUM BICARBONATE VIAL 50 MEQ/50 ML VIAL ONE (10:16)
[2018-08-05] MEDS ORDERED: HEPARIN SODIUM 100 U/ML 5 ML SYG IV ONE (10:16)
[2018-08-05] MEDS ORDERED: LIDOCAINE 1% 50 ML VIAL INJ ONE (10:16)
[2018-08-05] MEDS ORDERED: SODIUM CHLORIDE 0.9% 50 ML VIAL ONE (10:16)
[2018-08-05] MEDS ORDERED: fentaNYL CITRATE INJ 50 MCG/ML AMP ONE (10:21)
[2018-08-05] MEDS ORDERED: MIDAZOLAM INJ 5 MG/5 ML VIAL ONE (10:21)
[2018-08-05] MEDS ORDERED: KETAMINE HCL 100 MG/ML VIAL ONE (10:36)
--- NOTE | 2018-08-05 12:40 | RAD ---
Study: Single Frontal Radiograph of the Chest. Indication:s/p venous access port placement. Comparison: October 25, 2015 Impression: Right subclavian port tip terminates in the SVC. Heart size normal. Lungs clear. No pneumothorax. No acute osseous abnormality. Electronically signed by: Prakash Marie MD 08/05/2018 12:37 PM [facility]
--- NOTE | 2018-08-05 13:23 | OP ---
DATE OF PROCEDURE: 08/05/18 PREOPERATIVE DIAGNOSIS: 1. Malfunctioning right venous access port, subclavian. POSTOPERATIVE DIAGNOSIS: 1. Malfunctioning right venous access port, subclavian. PROCEDURE: 1. Removal and replacement of right subclavian venous access port. SURGEON: Daren Thomas MD. ENTRY ENGINEER: None. ANESTHESIA: Local infiltration of 1% lidocaine with bicarb and IV sedation by Anesthesia. INDICATION: The patient is a 47-year-old female who undergoes intravenous treatment via her venous access port which the first was placed in 2006, replaced in 2016. She now comes because her port catheter has migrated, is kinked and is unable to be aspirated. FINDINGS: The initial fluoroscopy view showed the catheter in the IJ kinked. Attempts to back it down and advance it normally failed and an attempt to pass a guidewire initially that would go anywhere but up the IJ failed. Eventually, we were able to get the guidewire into the superior vena cava and the catheter likewise appears to be in the vena cava and aspirates and flushes without difficulty. PROCEDURE: After adequate sedation was obtained, the patient was in the supine position, prepped and draped in the usual sterile manner. When this was done, the previous insertion site incision was infiltrated with local anesthesia and the skin was incised with a knife. The wound was dissected bluntly. The catheter was identified and dissected free circumferentially. Hemostat was placed under it. At this point, a towel was placed over the field to do the fluoroscopy. Attempts to back the catheter out and then advance it were made multiple times. I was unable to do this successfully, so at this point, a small incision was made in the catheter and a guidewire was introduced through the catheter into the vena cava. However, I was unable to get this guidewire to go down, so it was removed. At this point, the old port pocket was opened and the catheter and port were removed. The infraclavicular area was then approached through the previous incision, first with a 22-gauge needle which was advanced and blood was freely aspirated. An 18-gauge thin wall needle was likewise likewise advanced under the clavicle. Venous blood was aspirated. The guidewire was introduced. Eventually, the guidewire was placed into the vena cava. At this point, the new port pocket was formed medially and higher than the previous one. The port pocket was formed in the usual manner with local infiltration of anesthesia, a sharp knife, electrocautery and blunt dissection. When this was done, the port was introduced into the port pocket and sutured in place in the usual manner with 3-0 Prolene sutures. The catheter was tunneled from the port pocket to the insertion site in the usual manner using the tunneling device. The catheter was then cut to the appropriate length and dilator introducer was introduced over the guidewire. The guidewire and dilator were removed. The catheter was then advanced with some difficulty through the introducer and the introducer was removed in the usual manner. At this point, the catheter was accessed and I was unable to get it to aspirate. A towel was placed over the field. Fluoroscopy revealed the catheter appeared to be okay position, but at this point, we backed it out and re-accessed the catheter and was able to aspirate it and flush it after we had re-advanced it. It appeared to be in good position. It was then flushed first with heparinized saline, then heplock and de-accessed. At this point, again, a towel was placed over the field and the catheter was shown to be in adequate position. The skin incisions were closed with interrupted 3-0 Vicryl sutures and 4-0 Vicryl subcuticular sutures, benzoin and then Steri-Strips. Sterile pressure dressing was applied. The patient was awakened and taken to the Ambulatory Unit in stable condition. A stat portable chest x-ray was ordered. #[id number] MTDD
[2018-08-05 13:28] VITALS: O2SAT 95
[2018-08-05 13:29] VITALS: BP 108/62; TEMP 97.3
== END 2018-08-05 13:20 | disposition home or self-care (01) ==
LOC: AMB 07:00
PROVIDERS: ATTEND Surgery
DX: T82.594A Other mechanical complication of infusion catheter, initial encounter (principal); G35 Multiple sclerosis; E66.9 Obesity, unspecified; I10 Essential (primary) hypertension; Z88.8 Allergy status to other drugs, medicaments and biological substances; Z79.899 Other long term (current) drug therapy
CPT/HCPCS: 00532; 36415; 36561; 36590; 71045; 76000; 80048; 81001; 85025; 87086; A4216; J0690; J1100; J1642; J2250; J2765; J3010; J3490; J7050; J7120

== ENCOUNTER → 2018-08-26 | Outpatient (CLI) | payer MEDICARE ==
--- NOTE | 2018-08-26 12:47 | RAD ---
EXAM DESCRIPTION: Calcaneous,Right CLINICAL HISTORY: 47 years Female, S92.001D COMPARISON: None. TECHNIQUE: 2 views of the right calcaneus were obtained. FINDINGS: Possible fracture of the anterior process of the calcaneus is visualized on the lateral radiograph. No evidence of calcaneal spurs. IMPRESSION: Possible fracture of the anterior process of the calcaneus is visualized on the lateral radiograph. Electronically signed by: Viola Beard MD 08/26/2018 12:44 PM CDT
== END ==
LOC: RAD 08:22
PROVIDERS: ATTEND Orthopaedic Surgery
DX: S92.001D Unspecified fracture of right calcaneus, subsequent encounter for fracture with routine healing (principal)

== ENCOUNTER 2018-11-01 23:35 | Emergency (ER) | payer MEDICARE ==
[2018-11-02] MEDS: KETOROLAC TROMETHAMINE INJ 30 MG/ML VIAL IV ONE (00:04)
--- NOTE | 2018-11-02 00:28 | ED.PDOC ---
History of Present Illness - General Chief Complaint: Problem Stated Complaint: right flank pain since Thursday Time Seen by Provider: 11/01/18 23:37 Source: patient Exam Limitations: no limitations - History of Present Illness Initial Comments: Pt has had R flank pain with nausea x 2 days. Hx of kidney stones in past Timing/Duration: yesterday Quality: severe Onset Location: right flank Radiation: back Activites at Onset: none Prior abdominal problems: similar symptoms Associated Symptoms: lower back pain, nausea/vomiting, polyuria Allergies/Adverse Reactions: Allergies Chlorhexidine [From Hibiclens] Allergy (Verified 11/01/18 23:54) Aspirin Adverse Reaction (Mild, Verified 11/01/18 23:54) GI Upset Ibuprofen Adverse Reaction (Mild, Verified 11/01/18 23:54) Adverse Reaction, upsets pt's stomache. Home Medications: Ambulatory Orders Gabapentin [Neurontin] 800 mg PO TID 10/04/13 Estrogens, Conjugated [Premarin] 1.25 mg PO BID 01/18/17 ALPRAZolam [Xanax] 0.5 mg PO PRN 08/03/18 Duloxetine HCl [Cymbalta] 60 mg PO BEDTIME 08/03/18 HYDROcodone/IBUPROFEN 7.5/200 [Vicoprofen] 1 ea PO PRN 08/03/18 Interferon Beta-1A [Rebif] 44 mcg SC DAILY 08/03/18 Losartan Potassium [Cozaar] 50 mg PO DAILY 08/03/18 Modafinil [Provigil] 100 mg PO DAILY 08/03/18 Review of Systems - Review of Systems Constitutional: Denies: chills, fever EENTM: States: no symptoms reported Respiratory: States: no symptoms reported Cardiology: States: no symptoms reported Gastrointestinal/Abdominal: States: abdominal pain, nausea Genitourinary: States: frequency. Denies: dysuria Musculoskeletal: States: no symptoms reported Skin: States: no symptoms reported Past Medical History (General) - Patient Medical History Hx Seizures: No Hx Stroke: No Hx Dementia: No Hx Asthma: No Hx of COPD: No Hx Cardiac Disorders: No Hx Congestive Heart Failure: No Hx Pacemaker: No Hx Hypertension: Yes Hx Thyroid Disease: No Hx Diabetes: No Hx Gastroesophageal Reflux: No Hx Renal Disease: No Hx Cancer: No Hx of HIV: No Hx Hepatitis C: No Hx MRSA: No Surgical History: appendectomy, cholecystectomy, Hysterectomy - Vaccination History Hx Tetanus, Diphtheria Vaccination: Yes Hx Influenza Vaccination: No Hx Pneumococcal Vaccination: No - Social History Hx Tobacco Use: No Hx Chewing Tobacco Use: No Hx Alcohol Use: Yes - occasional Hx Substance Use: No Hx Substance Use Treatment: No Hx Depression: No Hx Physical Abuse: No Hx Emotional Abuse: No Hx Suspected Abuse: No - Female History Patient : No Family Medical History - Family History Grandparents Family History: Unknown Living Status: Physical Exam - Physical Exam General Appearance: Alert, Obvious distress Eyes, Ears, Nose, Throat Exam: PERRL/EOMI, pharynx normal Neck: non-tender, full range of motion, supple Cardiovascular/Respiratory: regular rate, rhythm, normal peripheral pulses, normal breath sounds Gastrointestinal/Abdominal: normal bowel sounds, soft, tenderness - R flank Back Exam: normal inspection, CVA tenderness (R) Extremity: normal range of motion, non-tender, normal inspection Departure - Departure Clinical Impression: Acute right flank pain Disposition: Discharge to Home or Self Care Departure Forms: ED Discharge - Pt. Copy, Patient Portal Self Enrollment Referrals: Sher Bradley III, MD [Primary Care Provider] - 1-2 Weeks Home Medications: Ambulatory Orders Gabapentin [Neurontin] 800 mg PO TID 10/04/13 Estrogens, Conjugated [Premarin] 1.25 mg PO BID 01/18/17 ALPRAZolam [Xanax] 0.5 mg PO PRN 08/03/18 Duloxetine HCl [Cymbalta] 60 mg PO BEDTIME 08/03/18 HYDROcodone/IBUPROFEN 7.5/200 [Vicoprofen] 1 ea PO PRN 08/03/18 Interferon Beta-1A [Rebif] 44 mcg SC DAILY 08/03/18 Losartan Potassium [Cozaar] 50 mg PO DAILY 08/03/18 Modafinil [Provigil] 100 mg PO DAILY 08/03/18
--- NOTE | 2018-11-02 00:28 | CT ---
EXAM DESCRIPTION: Abdoment/Pelvis w/o Contrast CLINICAL HISTORY: 47 years Female R flank pain COMPARISON: None TECHNIQUE: Images were obtained in axial, sagittal, and coronal planes. No oral or intravenous contrast was administered. This exam was performed according to our departmental dose-optimization program which includes use of Automated Exposure Control, adjustment of the mA and/or kV according to patient size and/or use of iterative reconstruction technique. FINDINGS: No obstructing renal calcifications bilaterally. No hydronephrosis bilaterally. Unremarkable bladder. Appendix not well identified however no secondary signs for appendicitis. Surgical clips adjacent to cecum. No bowel obstruction, perforation, or inflammation. No abnormality involving the liver, spleen, pancreas, or adrenal glands bilaterally. Prior cholecystectomy. No dilatation abdominal aorta. No adenopathy or abnormal collections seen. No acute osseous abnormality. No abnormality lower lungs bilaterally. IMPRESSION: No acute intra-abdominal abnormality. Electronically signed by: Vianney Kohler MD 11/02/2018 12:26 AM CDT
[2018-11-02] MEDS: HYDROCOD/APAP 10/325 (ER DISP) # 3 tablets PO ONE (01:04)
[2018-11-02 01:09] VITALS: BP 125/84; TEMP 98; O2SAT 97
== END 2018-11-02 01:11 | disposition home or self-care (01) ==
LOC: ER 23:35
DX: R10.9 Unspecified abdominal pain (principal); R11.0 Nausea; I10 Essential (primary) hypertension; Z90.49 Acquired absence of other specified parts of digestive tract; Z79.899 Other long term (current) drug therapy; Z88.8 Allergy status to other drugs, medicaments and biological substances; Z88.6 Allergy status to analgesic agent
CPT/HCPCS: 36415; 74176; 80053; 81001; 85025; J1885

== ENCOUNTER → 2019-02-21 | Outpatient (CLI) | payer MEDICARE ==
--- NOTE | 2019-02-22 08:47 | RAD ---
EXAM DESCRIPTION: Foot,Right 3 Views CLINICAL HISTORY: FRACTURE OF RIGHT CALCANEOUS COMPARISON: August 26, 2018 IMPRESSION: 3 views of the right foot osseous fragmentation in the region of the anterior process of the calcaneus similar to previous exam suggesting fracture without evidence of osseous union. No new fracture or joint dislocation. Soft tissues are unremarkable. Electronically signed by: Sloan Almanza MD 02/22/2019 8:46 AM CDT
--- NOTE | 2019-02-22 09:07 | RAD ---
EXAM DESCRIPTION: Calcaneous,Right CLINICAL HISTORY: RX OF RIGHT CALCANEUS COMPARISON: August 26, 2018 IMPRESSION: 2 views of the right os calcis again demonstrates probable fracture of the anterior process of the calcaneus with sclerotic changes along the fracture margins and lack of bridging bony union. No acute fracture or dislocation. Subtalar joints are unremarkable. Electronically signed by: Sloan Almanza MD 02/22/2019 9:06 AM CDT
== END ==
LOC: RAD 11:40
PROVIDERS: ATTEND Orthopaedic Surgery
DX: S92.001D Unspecified fracture of right calcaneus, subsequent encounter for fracture with routine healing (principal)

== ENCOUNTER → 2019-10-13 | Outpatient (CLI) | payer MEDICARE, MEDICAID ==
--- NOTE | 2019-10-14 08:42 | MRI ---
CLINICAL HISTORY: 48 years Female, MULTIPLE SCLEROSIS COMPARISON: None available. TECHNIQUE: Multiplanar multiecho imaging of the brain was performed before and after the administration of intravenous contrast. FINDINGS: Few FLAIR hyperintense foci are noted in the bilateral frontal, parietal lobes and basal ganglia. None of these lesions demonstrate restricted diffusion or postcontrast enhancement to suggest acuity. No acute major vascular territorial infarct or acute intraparenchymal hemorrhage. No intra-axial or extra-axial fluid collections are identified. No space-occupying lesion is identified. The cisterns and ventricles appear normal in caliber. The sella and suprasellar regions demonstrate no gross abnormality. The structures of the posterior fossa are intact. Small left mastoid effusion. Visual as paranasal sinuses and mastoid air cells are well-aerated. The globes are intact bilaterally. Review of the bones demonstrates no gross abnormality. IMPRESSION: Few FLAIR hyperintense foci are identified in the bilateral frontal lobes, parietal lobes and basal ganglia. Findings are most likely consistent with multiple sclerosis. However none of these lesions demonstrate restricted diffusion or postcontrast enhancement to suggest acuity. Electronically signed by: Viola Beard MD 10/14/2019 8:40 AM CDT
== END ==
LOC: MRI 13:54
PROVIDERS: ATTEND Psychiatry & Neurology Neurology
DX: G35 Multiple sclerosis (principal); G93.9 Disorder of brain, unspecified

== ENCOUNTER → 2020-05-08 | Outpatient (CLI) | payer MEDICARE ==
--- NOTE | 2020-05-09 10:55 | RAD ---
EXAM DESCRIPTION: Chest,1 View CLINICAL HISTORY: 49 years Female, TUNNELED CENTRAL VEOUS CATHETER IN SITU COMPARISON: Previous study August 05, 2018 TECHNIQUE: AP portable chest. FINDINGS: Heart size is normal with normal pulmonary vascularity. Port-A-Cath on the right with tip in the region of the confluence of innominate veins and upper superior vena cava with tip overlying the azygos vein. No consolidating infiltrate. No pulmonary mass or worrisome nodule. No pneumothorax or pleural effusion. Bones are unremarkable. IMPRESSION: No acute process is identified in the chest. Electronically signed by: Osvaldo Vance MD 05/09/2020 10:54 AM [facility]
== END ==
LOC: RAD 13:33
PROVIDERS: ATTEND Surgery
DX: Z95.828 Presence of other vascular implants and grafts (principal)